=== PATIENT | female | born 1955 | race Hispanic/Latino ===

== ENCOUNTER 2020-10-03 11:19 | Emergency (ER) | payer MEDICARE, MEDICAID, SELFPAY ==
[2020-10-03] VITALS (16 sets, daily range): BP systolic 125–185; BP diastolic 59–84; PULSE 51–86; RESP 12–24; TEMP 37.4; O2SAT 96–99; BMI 26.4
--- NOTE | 2020-10-03 12:19 | ED.GIBLEED ---
HPI - GI Bleed General Chief complaint: GI Bleed Stated complaint: stomach pain since Saturday,bleeding stool Time Seen by Provider: 10/03/20 12:18 Source: patient, family ([id number]) and safety instruction police officer Mode of arrival: Ambulatory Limitations: language barrier (primarily brazilian speaking) History of Present Illness HPI Narrative: This is a 65-year-old female who comes to the emergency department with complaint of abdominal pain and cramping that started Saturday evening and has continued today. She noted a black and bloody stools over the last 12 hours with increasing amount today. Patient has not had fevers, no chills. No cold cough or congestion. No chest pain or shortness of breath she describes the pain is starting her left side and radiating over to her right with time it is now generalized across the abdomen. It has been constant nothing seems to improve or worsen her symptoms. She describes it as a 5/10. She did have a meal of fish on Saturday afternoon/evening, she states 1 other individual had this food and did not have any symptoms. She has not had any nausea or vomiting. She denies any flank or back pain. She had diarrhea like stools that are a little bit more firm in consistency last night. No frequency, dysuria urgency or other urinary symptoms she does not take any blood thinners. She does take medication for hypertension, asthma, she does take Tylenol and Aleve intermittently but does not take take this daily. 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 She has a history of hysterectomy and also had nephrectomy secondary to cancer. No tobacco, alcohol or illicit. She is accompanied by her [id number] who is the main safety instruction police officer. Related Data Home Medications Medication Instructions Recorded Confirmed acyclovir [Zovirax] 400 mg PO BID #0 02/03/12 albuterol sulfate [Proventil HFA] 2 puff INH #8.5 gm 02/03/12 beclomethasone dipropionate [Qvar] 1 puff INH BID #1 inh 02/03/12 hydrochlorothiazide 25 mg PO QDAY #0 02/03/12 ipratropium bromide [Atrovent HFA] 2 puff INH QIDWART #0 02/03/12 metoprolol succinate 100 mg PO BID #0 02/03/12 Previous Rx's Medication Instructions Recorded tramadol [Ultram] 50 mg PO Q6H PRN #14 tab 10/03/20 Allergies Allergy/AdvReac Type Severity Reaction Status Date / Time aspirin Allergy Unknown triggers Verified 10/03/20 14:10 asthma attack Review of Systems Review of Systems ROS Unobtainable: All systems reviewed & are unremarkable except as noted in HPI and below Patient History Medical History (Updated 10/03/20 @ 15:49 by Adriana Lagunas DO) Hypertension Surgical History (Updated 10/03/20 @ 12:46 by Adriana Lagunas DO) H/O: hysterectomy History of nephrectomy Social History Smoking Status: Never smoker Smoking Status: Never smoker alcohol intake frequency: a few times a month Substance Use Type: does not use Exam Narrative Exam Narrative: GENERAL: Alert and oriented x three, well-nourished, well-appearing female in mild distress. HEENT: Head normocephalic, atraumatic, EOMI, pupils reactive, face symmetric, moist mucous membranes NECK: Supple, full range of motion CARDIOVASCULAR: Regular rate and rhythm without murmurs, rubs or gallops. RESPIRATORY: Breath sounds equal bilaterally, no wheezes rales or rhonchi. ABDOMEN: Soft, nontender to palpation. Normoactive bowel sounds all 4 quadrants. No guarding or rebound, rigidity, no mass. Stool occult is negative, no mass noted. Patient does have some small hemorrhoids, no bright red blood or melena noted on exam. : No CVA tenderness EXTREMITIES: Normal range of motion, no clubbing or edema. Neurovascularly intact NEUROLOGICAL: Cranial nerves II through XII grossly intact. Moving all extremities SKIN: Warm, dry, no petechiae, no rashes or lesions. Initial Vital Signs Initial Vital Signs: Vital Signs Temperature 99.3 F 10/03/20 11:34 Pulse Rate 85 10/03/20 11:34 Respiratory Rate 18 10/03/20 11:34 Blood Pressure 164/76 H 10/03/20 11:34 Pulse Oximetry 97 10/03/20 11:34 Course Orders Ordered: ED Orders 10/03/20 12:38 Complete Blood Count AUTO DIFF Stat Comprehensive Metabolic Panel Stat Lipase Stat Partial Thromboplastin Time Stat Prothrombin Time INR Stat Type and Screen Stat 10/03/20 14:15 CT abdomen pelvis w con Stat Discontinued Medications Ketorolac Tromethamine (Ketorolac 60 Mg/2 Ml Vial) 15 mg IV NOW ONE Stop: 10/03/20 14:05 Last Admin: 10/03/20 14:14 Dose: 15 mg Documented by: BLACK Ondansetron HCl (Ondansetron 4 Mg/2 Ml Inj) 4 mg IV NOW ONE Stop: 10/03/20 12:19 Last Admin: 10/03/20 12:58 Dose: 4 mg Documented by: DANITZA Vital Signs Vital signs: Vital Signs - 8 hr 10/03/20 12:30 10/03/20 12:38 10/03/20 13:01 Pulse Rate 68 69 Respiratory Rate Blood Pressure 149/77 H 131/73 Pulse Oximetry 97 97 10/03/20 13:21 10/03/20 13:30 10/03/20 14:00 Pulse Rate 60 56 L Respiratory Rate 21 17 21 Blood Pressure 130/66 Pulse Oximetry 10/03/20 14:01 10/03/20 14:28 10/03/20 14:30 Pulse Rate 58 L 57 L 56 L Respiratory Rate 24 17 12 Blood Pressure 126/67 131/62 Pulse Oximetry 97 99 10/03/20 14:31 10/03/20 15:00 10/03/20 15:30 Pulse Rate 53 L 58 L 51 L Respiratory Rate 14 20 17 Blood Pressure 127/59 L 132/65 130/67 Pulse Oximetry 98 97 96 10/03/20 16:00 10/03/20 16:30 Pulse Rate 51 L 86 Respiratory Rate 22 17 Blood Pressure 125/63 185/84 H Pulse Oximetry 97 97 MDM - GI Bleed Lab Data Attestation: I reviewed the patient's lab results. Result diagrams: 10/03/20 12:38 10/03/20 12:38 Labs: Lab Results 10/03/20 10/03/20 10/03/20 Range/Units 12:38 12:38 12:38 WBC 9.3 (4.5-11.0) X10^3/uL RBC 4.73 (4.0-5.2) X10^6/uL Hgb 13.7 (12.0-16.0) g/dL Hct 40.6 (36-46) % MCV 85.9 (80-100) fL MCH 29.1 (26-34) PG MCHC 33.8 (30-36) % RDW 13.6 (11.6-14.8) % Plt Count 260 (150-400) X10^3/uL Neut % (Auto) 68.8 (50-75) % Lymph % (Auto) 22.6 L (25-40) % Coffey % (Auto) 5.4 (3-14) % Eos % (Auto) 2.5 (2-4) % Baso % (Auto) 0.7 (0-2) % Neut # (Auto) 6400 (8771-3285) /uL Lymph # (Auto) 2100 (7537-1914) /uL [place]offey # (Auto) 500 (0-900) /uL Eos # (Auto) 200 (0-450) /uL Baso # (Auto) 100 (0-100) /uL PT 11.1 (10.1-12.7) SECONDS INR 1.0 (0.9-1.3) APTT 36 (26.4-36.2) SECONDS Sodium 137 (137-145) mmol/L Potassium 3.7 (3.4-5.1) mmol/L Chloride 102 (98-107) mmol/L Carbon Dioxide 27 (22-32) mmol/L BUN 12 (7-17) mg/dL Creatinine 0.67 (0.52-1.04) mg/dL Estimated GFR > 60.0 (>60) mL/min BUN/Creatinine Ratio 17.9 (6-22) Glucose 162 H (80-110) mg/dL Calcium 9.2 (8.4-10.2) mg/dL Total Bilirubin 0.4 (0.2-1.3) mg/dL AST 26 (14-36) IU/L ALT 21 (<35) IU/L Alkaline Phosphatase 98 (38-126) U/L Total Protein 7.4 (6.3-8.2) g/dL Albumin 4.4 (3.5-5.0) g/dL Globulin 3.0 (1.7-4.1) g/dL Albumin/Globulin Ratio 1.5 (1.0-2.8) Lipase 66 (23-300) U/L Blood Type Antibody Screen 10/03/20 Range/Units 12:38 WBC (4.5-11.0) X10^3/uL RBC (4.0-5.2) X10^6/uL Hgb (12.0-16.0) g/dL Hct (36-46) % MCV (80-100) fL MCH (26-34) PG MCHC (30-36) % RDW (11.6-14.8) % Plt Count (150-400) X10^3/uL Neut % (Auto) (50-75) % Lymph % (Auto) (25-40) % [place]offey % (Auto) (3-14) % Eos % (Auto) (2-4) % Baso % (Auto) (0-2) % Neut # (Auto) (2129-3751) /uL Lymph # (Auto) (9873-6336) /uL [place]offey # (Auto) (0-900) /uL Eos # (Auto) (0-450) /uL Baso # (Auto) (0-100) /uL PT (10.1-12.7) SECONDS INR (0.9-1.3) APTT (26.4-36.2) SECONDS Sodium (137-145) mmol/L Potassium (3.4-5.1) mmol/L Chloride (98-107) mmol/L Carbon Dioxide (22-32) mmol/L BUN (7-17) mg/dL Creatinine (0.52-1.04) mg/dL Estimated GFR (>60) mL/min BUN/Creatinine Ratio (6-22) Glucose (80-110) mg/dL Calcium (8.4-10.2) mg/dL Total Bilirubin (0.2-1.3) mg/dL AST (14-36) IU/L ALT (<35) IU/L Alkaline Phosphatase (38-126) U/L Total Protein (6.3-8.2) g/dL Albumin (3.5-5.0) g/dL Globulin (1.7-4.1) g/dL Albumin/Globulin Ratio (1.0-2.8) Lipase (23-300) U/L Blood Type O Positive Antibody Screen Negative Urine Dip Bedside Urine Glucose Negative Bedside Urine Bilirubin - Negative Bedside Urine Ketone - Negative Urine Specific [place] 1.010 Bedside Urine Occult Blood - Negative Bedside Urine pH 6.5 Bedside Urine Protein - Negative Bedside Urine Urobilinogen - Negative Bedside Urine Nitrite - Negative Bedside Urine Leukocytes - Negative Esterase Imaging Data CT scan - abdomen/pelvis: Radiologist's Impression: [address] [id number] Scan ReportSigned Patient: Lubna Mayen#: [id number]: 4Acct:[id number]/Sex: 65 / FDate of Service: 10/03/20Loc: EDAccession Number: [id number] Procedure: CT abdomen pelvis w con Ordering Provider: Adriana Lagunas D.O. PROCEDURE: CT ABDOMEN PELVIS W CON INDICATIONS: abdominal pain, rectal bleeding TECHNIQUE: After the administration of intravenous contrast, 5 mm thick sections acquired from the diaphragm to the symphysis. 5 mm coronal and sagittal reformats were acquired. For radiation dose reduction, the following was used: automated exposure control, adjustment of mA and/or kV according to patient size. COMPARISON: None. FINDINGS: Image quality: Excellent. ABDOMEN: Lung bases: 4 millimeters subpleural nodule is seen in lateral aspect of right middle lobe anterior to major fissure. Faint 1-2 millimeter nodule is also seen in more anterior aspect of right middle lobe at this level series 3, image 13. No pleural effusion or pneumothorax. Heart size is normal. Solid organs: Liver is normal in size . Mild hepatic steatosis is seen. 2.8 x 2.8 centimeter hypodense area involving inferior right hepatic lobe is seen measures 2 Hounsfield unit in density likely represent hepatic cyst. Gallbladder is within normal limits. Biliary system is non dilated. Pancreas enhances normally. Spleen is normal in size and enhancement. Diffuse thickening of left adrenal gland is seen without discrete left adrenal nodule. Right adrenal gland is not definitively seen. Patient is status post right nephrectomy. There is a solid and heterogeneously enhancing mass involving right renal fossa measures 5.8 x 6.4 x 8.1 cm in size with mild mass effect on the adjacent right hepatic lobe and ascending colon loop. Left kidney show no hydronephrosis or nephrolithiasis. Peritoneum and bowel: Bowel loops demonstrate normal wall thickness and caliber. No free fluid or air. Appendix is visualized and is within normal limits. Nodes and vessels: No retroperitoneal or mesenteric adenopathy by size criteria. Aorta and inferior vena cava are normal in size. Miscellaneous: No ventral hernias. PELVIS: Genitourinary: Bladder wall thickness is normal. Miscellaneous: No inguinal hernias or adenopathy. Bones: No suspicious bony lesions. No vertebral body compression fractures. Degenerative disc disease throughout lower thoracic and lumbar spine is seen. IMPRESSION: 1. Prior right nephrectomy. 5.8 x 6.4 x 8.1 centimeter heterogeneously enhancing and solid lesion involving right renal fossa and is in close proximity to posterior aspect of inferior right hepatic lobe. Given patient's history of right renal cancer, tumor recurrence is suspected. No gross abnormality is seen in left kidney. No hydronephrosis. 2. 2.8 centimeter hypodense area with well-circumscribed margins seen in inferior right hepatic lobe likely represent hepatic cyst. 3. No bowel obstruction. No free fluid or free air. No gross abnormal bowel wall thickening. Normal appendix. Dictated by: Zheng Charles M.D. on 10/03/2020 at 14:43 Approved by: Zheng Charles M.D. on 10/03/2020 at 14:55 MDM Narrative Medical decision making narrative: 65-year-old female with abdominal pain since Saturday and complaint of rectal bleeding. Hemoccult was negative. Labs show no major abnormalities. CT abdomen pelvis was obtained, patient has a prior right nephrectomy approximately 16 years ago for renal cancer. She has a mass that is present that she was unaware of. Unclear if this is an incidental finding or the cause of her abdominal but follow-up was set up with Dr. Kebede through Oncology patient's family is to contact to set up exact appointment time but plan to be seen later this week or early next week. Patient and her daughter in-law and I discussed her findings today with the use of a telegraph dispatcher. She continues to have some pain so was given a prescription for Ultram as well as encouraged to use Colace or a stool softener regularly. They were also encouraged recontact us or return to the ER if they have difficulty setting up follow-up secondary to language issues or other reasons. Discharge Plan Departure Patient Disposition: Home Clinical Impression: Abdominal pain, Abdominal mass Activity Restrictions/Additional Instructions: Follow up with oncology, call the number below to set up follow-up appointment. I spoke with Dr. Kebede he will follow up with at the end of the week or early next week. If you have problems setting up follow up to call the emergency department. Your imaging today shows a lesion on the right side close to where your kidney was before. This is concerning for recurrence of your prior cancer. You may take up to a 1000 mg every 8 hours as needed for pain. Prescriptions: New tramadol [Ultram] 50 mg tablet 50 mg PO Q6H PRN (Reason: pain) Qty: 14 RF: 0 No Action acyclovir [Zovirax] 400 MG tablet 400 mg PO BID Qty: 0 RF: 0 metoprolol succinate 100 MG tablet extended release 24 hr 100 mg PO BID Qty: 0 RF: 0 hydrochlorothiazide 25 MG tablet 25 mg PO QDAY Qty: 0 RF: 0 beclomethasone dipropionate [Qvar] 80 MCG/PUFF aerosol 1 puff INH BID Qty: 1 RF: 0 albuterol sulfate [Proventil HFA] 90 MCG/PUFF HFA aerosol inhaler 2 puff INH Qty: 8.5 RF: 0 ipratropium bromide [Atrovent HFA] 12.9 GM HFA aerosol inhaler 2 puff INH QIDWART Qty: 0 RF: 0 Referrals: Tiara Styles MD [Primary Care Provider] - Rios Kebede MD [Physician] -
[2020-10-03 12:53] LABS: Add Manual Diff / Slide Review NO; Basophils Absolute Auto 100 /uL (0-100); Basophils Percent Auto 0.7 % (0-2); Eosinophils Absolute Auto 200 /uL (0-450); Eosinophils Percent Auto 2.5 % (2-4); Hematocrit 40.6 % (36-46); Hemoglobin 13.7 g/dL (12.0-16.0); Lymphocytes Absolute Auto 2100 /uL (1100-4500); Lymphocytes Percent Auto 22.6 % (25-40); Mean Corpuscular HGB Conc 33.8 % (30-36); Mean Corpuscular Hemoglobin 29.1 PG (26-34); Mean Corpuscular Volume 85.9 fL (80-100); Monocytes Absolute Auto 500 /uL (0-900); Monocytes Percent Auto 5.4 % (3-14); Neutrophils Absolute Auto 6400 /uL (1500-7000); Neutrophils Percent Auto 68.8 % (50-75); Platelet Count 260 X10^3/uL (150-400); Red Blood Cell Count 4.73 X10^6/uL (4.0-5.2); Red Cell Distribution Width 13.6 % (11.6-14.8); White Blood Cell Count 9.3 X10^3/uL (4.5-11.0)
[2020-10-03] MEDS: ONDANSETRON 4 MG/2 ML INJ IV (12:58)
[2020-10-03 12:59] LABS: Prothrombin Time 11.1 SECONDS (10.1-12.7)
[2020-10-03 13:02] LABS: PTT Partial Thromboplastin Tim 36 SECONDS (26.4-36.2)
[2020-10-03 13:04] LABS: Alanine Aminotransferase 21 IU/L (<35); Albumin 4.4 g/dL (3.5-5.0); Albumin Globulin Ratio 1.5 (1.0-2.8); Alkaline Phosphatase 98 U/L (38-126); Aspartate Aminotransferase 26 IU/L (14-36); BUN Creatinine Ratio 17.9 (6-22); Bilirubin Total 0.4 mg/dL (0.2-1.3); Blood Urea Nitrogen 12 mg/dL (7-17); Calcium 9.2 mg/dL (8.4-10.2); Carbon Dioxide 27 mmol/L (22-32); Chloride 102 mmol/L (98-107); Estimated Glomerular Filt Rate > 60.0 mL/min (>60); Glucose 162 mg/dL (80-110); HEMOLYSIS < 15 (0-50); Lipase 66 U/L (23-300); Potassium 3.7 mmol/L (3.4-5.1); Sodium 137 mmol/L (137-145); Total Protein 7.4 g/dL (6.3-8.2)
[2020-10-03] MEDS: KETOROLAC 60 MG/2 ML VIAL 15 MG IV (14:14)
--- NOTE | 2020-10-03 14:15 | DI.CT.S_ITS ---
PROCEDURE: CT ABDOMEN PELVIS W CON INDICATIONS: abdominal pain, rectal bleeding TECHNIQUE: After the administration of intravenous contrast, 5 mm thick sections acquired from the diaphragm to the symphysis. 5 mm coronal and sagittal reformats were acquired. For radiation dose reduction, the following was used: automated exposure control, adjustment of mA and/or kV according to patient size. COMPARISON: None. FINDINGS: Image quality: Excellent. ABDOMEN: Lung bases: 4 millimeters subpleural nodule is seen in lateral aspect of right middle lobe anterior to major fissure. Faint 1-2 millimeter nodule is also seen in more anterior aspect of right middle lobe at this level series 3, image 13. No pleural effusion or pneumothorax. Heart size is normal. Solid organs: Liver is normal in size . Mild hepatic steatosis is seen. 2.8 x 2.8 centimeter hypodense area involving inferior right hepatic lobe is seen measures 2 Hounsfield unit in density likely represent hepatic cyst. Gallbladder is within normal limits. Biliary system is non dilated. Pancreas enhances normally. Spleen is normal in size and enhancement. Diffuse thickening of left adrenal gland is seen without discrete left adrenal nodule. Right adrenal gland is not definitively seen. Patient is status post right nephrectomy. There is a solid and heterogeneously enhancing mass involving right renal fossa measures 5.8 x 6.4 x 8.1 cm in size with mild mass effect on the adjacent right hepatic lobe and ascending colon loop. Left kidney show no hydronephrosis or nephrolithiasis. Peritoneum and bowel: Bowel loops demonstrate normal wall thickness and caliber. No free fluid or air. Appendix is visualized and is within normal limits. Nodes and vessels: No retroperitoneal or mesenteric adenopathy by size criteria. Aorta and inferior vena cava are normal in size. Miscellaneous: No ventral hernias. PELVIS: Genitourinary: Bladder wall thickness is normal. Miscellaneous: No inguinal hernias or adenopathy. Bones: No suspicious bony lesions. No vertebral body compression fractures. Degenerative disc disease throughout lower thoracic and lumbar spine is seen. IMPRESSION: 1. Prior right nephrectomy. 5.8 x 6.4 x 8.1 centimeter heterogeneously enhancing and solid lesion involving right renal fossa and is in close proximity to posterior aspect of inferior right hepatic lobe. Given patient's history of right renal cancer, tumor recurrence is suspected. No gross abnormality is seen in left kidney. No hydronephrosis. 2. 2.8 centimeter hypodense area with well-circumscribed margins seen in inferior right hepatic lobe likely represent hepatic cyst. 3. No bowel obstruction. No free fluid or free air. No gross abnormal bowel wall thickening. Normal appendix. Dictated by: Zheng Charles M.D. on 10/03/2020 at 14:43 Approved by: Zheng Charles M.D. on 10/03/2020 at 14:55
== END 2020-10-03 17:12 | disposition home or self-care (01) ==
PROVIDERS: Emergency Provider Emergency Medicine; PCP Family Medicine
DX: R19.09 Other intra-abdominal and pelvic swelling, mass and lump (principal); R10.9 Unspecified abdominal pain; K92.1 Melena; Z85.528 Personal history of other malignant neoplasm of kidney; Z90.5 Acquired absence of kidney
CPT/HCPCS: 36415; 74177; 80053; 81003; 83690; 85025; 85610; 85730; 86850; 86900; 86901; 96374; 96375; 99281; 99284; J1885; J2405; Q9967

== ENCOUNTER → 2020-10-20 11:51 | Outpatient (CLI) | payer MEDICARE, MEDICAID, SELFPAY ==
--- NOTE | 2020-10-20 11:52 | DI.CT.S_ITS ---
PROCEDURE: CT CHEST WO CON INDICATIONS: right retroperitonal mass, kidney cancer TECHNIQUE: Noncontrast 5 mm thick sections acquired from the pulmonary apices to the posterior costophrenic angles. 1 mm lung window, 5 mm thick coronal and sagittal and 7 mm axial MIP reformats were then acquired. For radiation dose reduction, the following was used: automated exposure control, adjustment of mA and/or kV according to patient size. COMPARISON: [facility], ID, ID PET CT FUSION SKULL 2 THIGH, 10/19/2020, 10:39. [facility], CT, CT ABDOMEN PELVIS W CON, 10/03/2020, 14:17. FINDINGS: Image quality: Excellent. Right middle lobe 2 mm pulmonary nodule seen on image 181/3 is indeterminate. Pleural-based 2-3 mm nodule also seen in the right middle lobe on image 178/3. No pleural effusions or pneumothorax. Central and peripheral airways are patent and normal in caliber. Mediastinum: Heart size is normal. No pericardial effusion. No mediastinal adenopathy by size criteria. Thoracic aorta and central pulmonary arteries are normal in size. Esophagus is normal in caliber. No hiatal hernia. Bones and chest wall: No suspicious bony lesions. No vertebral body compression fractures. No axillary or supraclavicular adenopathy by size criteria. Thyroid gland heterogeneous, with possible low-attenuation nodule in the right lobe although this could be confirmed and further assessed with dedicated thyroid ultrasound as necessary. . Abdomen: Partially visualized redemonstrated round mass within the right retroperitoneum as before. IMPRESSION: Indeterminate sub 5 mm pulmonary nodules in the right middle lobe as above. Recommend continued surveillance with CT to document stability and exclude early metastatic/malignant disease. Partially visualized right retroperitoneal mass, as previously described. Dictated by: Julio Alcaraz M.D. on 10/20/2020 at 12:58 Approved by: Julio Alcaraz M.D. on 10/20/2020 at 13:06
== END ==
PROVIDERS: PCP Family Medicine; Referring Provider Internal Medicine Hematology & Oncology; Visit Provider Internal Medicine Hematology & Oncology
DX: R19.09 Other intra-abdominal and pelvic swelling, mass and lump (principal); R92.8 Other abnormal and inconclusive findings on diagnostic imaging of breast; Z85.528 Personal history of other malignant neoplasm of kidney
CPT/HCPCS: 71250

== ENCOUNTER → 2020-10-24 16:20 | Oncology outpatient (ONC) | payer MEDICARE, MEDICAID, SELFPAY ==
--- NOTE | 2020-10-06 12:48 | ONC.CONS ---
History of Present Illness - Data of Consult Patient: new to practice Consult date: 10/06/20 Requesting Physician: Tiara Styles MD Primary Care Provider: Tiara Styles MD - Consult Narrative Reason for consult: Right abdominal mass Narrative: Lubna Mays is a 65 year old female. She is Gabonese speaking only. Her grandson was with her and interpreted during the encounter. She has a remote history of right kidney cancer diagnosed in 2001 or 2002 at [facility]. The patient underwent right nephrectomy. The patient said it was a kidney cancer. However no actual pathological report was available to review during the encounter. After the surgery the patient has been on active surveillance and imaging studies until 2004 when she moved to the [facility]. According to her, she has been back multiple times to [place] for follow-up visit. She said the most recent study at [place] was in 2019 with abdominal ultrasound which was ?normal.? The patient developed abdominal pain and cramping that started on 09/30/2020. Patient also noted a black and bloody stools for the next one day. She said that the pain was located around the lower abdomen. It was constant and nothing seemed to improve or worsen the symptoms. The pain was 5/10 in severity. Patient was evaluated at the [facility] Emergency Room on 10/03/2020. CT abdomen and pelvis with contrast showed evidence of prior nephrectomy. It also showed a 5.8 x 6.4 x 8.1 cm heterogeneously enhancing and solid lesion involving right renal fossa and was in close proximity to posterior aspect of inferior right hepatic lobe. It also showed a 2.8 cm hypodense area with well circumscribed margins in inferior right hepatic lobe likely representing a hepatic cyst. Patient said that the abdominal pain resolved later, but she began to feel discomfort at the right flank area. She reports that her energy level is fine but feels nervous and worried. Her appetite also has decreased. She denies any shortness of breath or chest pain. She denies cough. She denies any headache double vision or blurred vision. She denies any nausea or vomiting. She denies any musculoskeletal pain. CC: Rios Kebede MD Patient reports pain?: No Home Medications and Allergies Home Medications Medication Instructions Recorded Confirmed Type Atrovent HFA 2 puff INH QIDWART #0 02/03/12 10/06/20 History Qvar 1 puff INH PRN PRN #1 inh 02/03/12 10/06/20 History acyclovir [Zovirax] 400 mg PO DAILY #0 02/03/12 10/06/20 History albuterol sulfate [Proventil HFA] 2 puff INH PRN PRN #8.5 gm 02/03/12 10/06/20 History hydrochlorothiazide 25 mg PO QDAY #0 02/03/12 10/06/20 History tramadol [Ultram] 50 mg PO Q6H PRN #14 tab 10/03/20 10/06/20 Rx amlodipine [Norvasc] 10 mg PO DAILY 10/06/20 10/06/20 History cetirizine [Zyrtec] 10 mg PRN PRN 10/06/20 10/06/20 History naproxen sodium [Aleve] 220 mg PO BID PRN 10/06/20 10/06/20 History omeprazole 20 mg PRN PRN 10/06/20 10/06/20 History Allergies Allergy/AdvReac Type Severity Reaction Status Date / Time aspirin Allergy Unknown triggers Verified 10/03/20 14:10 asthma attack Medical History - Medical, Surgical, Family History Medical History: Medical History (Last Updated 10/03/20 @ 12:46 by Adriana Lagunas DO) Hypertension Surgical History: Surgical History (Last Updated 10/03/20 @ 12:46 by Adriana Lagunas DO) H/O: hysterectomy History of nephrectomy Family History: Family History (Last Updated 10/06/20 @ 13:38 by Rios Kebede MD) Brother Lung cancer - Social History Smoking Status: Never smoker Substance Use Type: does not use Alcohol Intake: current (wine occasionally) Results - Imaging Additional studies: Procedures Other nonoperative respiratory measurements (04/05/13) Assessment and Plan (1) Abdominal mass, right upper quadrant The patient is a 65-year-old Gabonese-speaking woman with remote history of right kidney cancer status post radical nephrectomy in . Now she presented with bright red blood per rectum, abdominal pain, and CT evidence of right sided mass in the renal fossa in 09/2020. I talked with the patient that at this point, we do not know exactly what is the diagnosis of the mass in the right renal fossa. It could be benign or it could be local recurrence of the previous renal cell carcinoma. The previous diagnosis is also important. I will have the patient to call her previous surgeon at [place] and fax us the previous medical records. Patient and patient's grandson both voiced understanding. I explained to the patient that if it is recurrence, usually it will also show up in other organ systems. To complete the staging, I will obtain a CT of the chest without contrast. In addition, I will obtain a PET scan to to better evaluate. I discussed this case with Dr. Benitez today. We reviewed the CT of the abdomen and pelvis. Dr. Benitez noted that the mass in the right renal fossa seems to be either invading or connected with the small bowel. The mass also has close relationship with the liver without plane between the mass and the liver. There seems to be an artery coming from the left kidney to the mass. Dr. Benitez recommended that we get an evaluation from general surgery. We also agreed that a CT-guided biopsy is necessary. Plan: Medical records from [place] CT chest wo contrast PET CT CT guided biopsy of the mass Referral to general surgery for evaluation RTC after scan
[2020-10-06 12:53] VITALS: BP 132/88; PULSE 93; RESP 18; TEMP 36.4; O2SAT 96
--- NOTE | 2020-10-11 11:41 | ONC.SCHED ---
PET scan scheduled for 10/19/20 check in time of 10:10 AM. Patient will be needing to bring her grandson for interpretation. I gave apt. day/time to grandson.
--- NOTE | 2020-10-13 09:12 | ONC.SCHED ---
Still waiting for approval from radiologist for the CT biopsy of the abdomen to be done at the same time as the CT chest wo contrast. I gave this to Louise in DI a couple of days ago and checked on the status today; nothing has been returned to her/approved yet.
--- NOTE | 2020-10-17 13:40 | ONC.SCHED ---
Patient is scheduled for CT chest wo 10/20/20 and will have her grandson, Lopez bring her to the apt. for interpretation. I will send out the email.
--- NOTE | 2020-10-17 13:41 | ONC.SCHED ---
Patient is scheduled with Dr. Carrillo 10/21/20 for a consult per referral @ 1:15PM check in time. I'm waiting to hear back from her grandson to see who will be coming for interpretation as patient will need it.
--- NOTE | 2020-10-24 16:34 | P.PNONC_ITS ---
PN -Subjective Interval history: Lubna Mays is a 65 year old female. She is Polish speaking only. Her grandson was with her and interpreted during the encounter. She has a remote history of right kidney cancer diagnosed in 2001 or 2002 at [facility]. The patient underwent right nephrectomy. The patient said it was a kid ruby cancer. However no actual pathological report was available to review during the encounter. After the surgery the patient has been on active surveillance and imaging studies until 2004 when she moved to the [facility]. According to her, she has been back multiple times to [place] for follow-up visit. She said the most recent study at [place] was in 2019 with abdominal ultrasound which was ?normal.? The patient developed abdominal pain and cramping that started on 09/30/2020. Patient also noted a black and bloody stools for the next one day. She said that the pain was located around the lower abdomen. It was constant and nothing seemed to improve or worsen the symptoms. The pain was 5/10 in severity. Patient was evaluated at the [facility] Emergency Room on 10/03/2020. CT a bdomen and pelvis with contrast showed evidence of prior nephrectomy. It also showed a 5.8 x 6.4 x 8.1 cm heterogeneously enhancing and solid lesion involving right renal fossa and was in close proximity to posterior aspect of inferior right hepatic lobe. It also showed a 2.8 cm hypodense area with well circumscribed margins in inferior right hepatic lobe likely representing a hepatic cyst. Patient said that the abdominal pain resolved later, but she began to feel discomfort at the right flank area. She reports that her energy level is fine but feels nervous and worried. Her appetite also has decreased. She denies any shortness of breath or chest pain. She denies cough. She denies any headache double vision or blurred vision. She denies any nausea or vomiting. She denies any musculoskeletal pain. Interim Events: No medical records can be obtained because they have destroyed the records after 5 years. On 10/19/2020, patient underwent PET scan. It showed a 6 cm mass in the right adrenal/renal fossa with increased FDG uptake, mildly hypermetabolic lymph nodes in the mediastinum and carmine bilaterally, and a hypermetabolic soft tissue nodule projecting to the posterior aspect of the right thyroid lobe. On 10/20/2020, patient underwent CT chest without contrast. It showed indeterminate sub 5 mm pulmonary nodules in the right middle lobe On 10/21/2020, patient was evaluated by Dr. Carrillo. misha, general surgeon at [facility]. Dr. alfonso khan thought the patient is most appropriately treated at a tertiary center given the proximity the mass to her liver, vena cava, duo denum, pancreas, and small bowel. Home Medications and Allergies Home Medications Medication Instructions Recorded Confirmed Type Atrovent HFA 2 puff INH QIDWART #0 02/03/12 10/24/20 History Qvar 1 puff INH PRN PRN #1 inh 02/03/12 10/24/20 History acyclovir [Zovirax] 400 mg PO DAILY #0 02/03/12 10/24/20 History albuterol sulfate [Proventil HFA] 2 puff INH PRN PRN #8.5 gm 02/03/12 10/24/20 History hydrochlorothiazide 25 mg PO QDAY #0 02/03/12 10/24/20 History tramadol [Ultram] 50 mg PO Q6H PRN #14 tab 10/03/20 10/24/20 Rx amlodipine [Norvasc] 10 mg PO DAILY 10/06/20 10/24/20 History cetirizine [Zyrtec] 10 mg PRN PRN 10/06/20 10/24/20 History naproxen sodium [Aleve] 220 mg PO BID PRN 10/06/20 10/24/20 History omeprazole 20 mg PRN PRN 10/06/20 10/24/20 History lorazepam 0.5 mg PO TID PRN #30 tab 10/24/20 Rx Allergies Allergy/AdvReac Type Severity Reaction Status Date / Time aspirin Allergy Unknown triggers Verified 10/21/20 14:02 asthma attack Exam Vital signs: 10/25/20 00:31 Last Vital Signs Temp 97.6 F 10/06/20 12:53 Pulse 93 H 10/24/20 16:58 Resp 16 10/24/20 16:58 BP 146/84 H 10/24/20 16:58 Pulse Ox 95 10/24/20 16:58 - Constitutional positive no acute distress, positive obese, positive chronically ill appearing, positive cooperative - Routine HEENT Exam Head: Present: normocephalic, atraumatic Eye: Present: EOMI, PERRL, normal accommodation. Absent: conjunctival icterus ENT: Present: mucous membranes moist - Routine Neck Exam Present: supple, swelling. Absent: lymphadenopathy, thyromegaly - Routine Chest/Breast/Axilla Exam Chest wall exam standard: Absent: mass Axillae: Absent: lymphadenopathy, tenderness - Routine Respiratory Exam Present: Clear to auscultation bilaterally. Absent: wheezes - Routine Cardiovascular Exam Present: RRR, S1, S2. Absent: murmur, gallop, rubs - Routine Abdominal Exam Present: soft. Absent: tenderness, distended, organomegaly - Routine Extremities Exam Absent: edema - Routine Neurological Exam Present: alert, oriented X3, CN II-XII intact. Absent: sensory deficit, motor deficit - Routine Psychiatric Exam Present: cooperative, anxious Results - Imaging Additional studies: Procedures Other nonoperative respiratory measurements (04/05/13) Assessment and Plan (1) Abdominal mass, right upper quadrant The patient is a 65-year-old Polish-speaking woman with remote history of right kidney cancer status post radical nephrectomy in . Now she presented with bright red blood per rectum, abdominal pain, and CT evidence of right sided mass in the renal fossa in 09/2020. Today I showed the patient and her grandson the CT of the chest as well as PET scan with the patient. I pointed out to them that it is suspicious for recurrent kidney cancer but other possibilities cannot be completely excluded. On the PET scan, there are hypermetabolic mediastinum and hilar lymph as well as thyroid hypermetabolic lesion. The significance of these findings are difficult to reconcile with the right upper abdomen mass. I talked with the patient and her grandson that I agree with Dr. Carrillo and Dr. Vidal that the patient needs to be transferred to high volume tertiary center for evaluation and treatment. Plan: Referral to Urology at /[facility] for evaluation. RTC in 2 months
[2020-10-24 16:58] VITALS: BP 146/84; PULSE 93; RESP 16; O2SAT 95
--- NOTE | 2020-11-07 09:27 | ONC.SCHED ---
Called patient's grandson [employer] to make sure they have heard from [facility]. They have an apt. this with [facility] and are planning on getting patients there. They will call us when they know dates/apt. with them in order to get patient scheduled here.
--- NOTE | 2021-01-25 15:20 | ONC.SCHED ---
Spoke to Bj today to see if Lubna (patient) was ready to make a fup with Dr. Kebede. He is on her auth to discuss. Bj said that patient had biopsy in [place] and is scheduled to have surgery 01/30/21 in [place]. They will call back for scheduling after she's feeling better from surgery.
== END ==
PROVIDERS: PCP Family Medicine; Referring Provider Family Medicine; Visit Provider Internal Medicine Hematology & Oncology
DX: R19.09 Other intra-abdominal and pelvic swelling, mass and lump (principal); E07.9 Disorder of thyroid, unspecified; R91.8 Other nonspecific abnormal finding of lung field; K62.5 Hemorrhage of anus and rectum; Z85.528 Personal history of other malignant neoplasm of kidney; Z90.5 Acquired absence of kidney; Z90.710 Acquired absence of both cervix and uterus
CPT/HCPCS: 99204; 99214; 99215

== ENCOUNTER → 2020-11-29 15:40 | Outpatient (CLI) | payer MEDICARE, MEDICAID, SELFPAY ==
[2020-12-03 12:08] LABS: Metanephrine,Plasma <10.0 pg/mL (0.0-88.0)
== END ==
PROVIDERS: PCP Family Medicine; Referring Provider Internal Medicine Medical Oncology; Visit Provider Internal Medicine Medical Oncology
DX: E27.8 Other specified disorders of adrenal gland (principal)
CPT/HCPCS: 36415; 83835

== ENCOUNTER 2021-03-15 14:53 | Emergency (ER) | payer MEDICARE, MEDICAID, SELFPAY ==
[2021-03-15] VITALS (11 sets, daily range): BP systolic 124–146; BP diastolic 63–76; PULSE 79–92; RESP 20–28; TEMP 36.7; O2SAT 95–98
--- NOTE | 2021-03-15 16:04 | ED.ASTHMA ---
HPI - Asthma General Chief Complaint: Asthma Stated Complaint: asthma attack Time Seen by Provider: 03/15/21 15:58 Source: patient Mode of arrival: Ambulatory Limitations: language barrier History of Present Illness HPI Narrative: Patient is a 66-year-old female who is Faroese-speaking only who is here for evaluation of reported asthma attack. Patient's daughter is with her. Her daughter provided translation services. We did offer the translation line however the patient and the daughter both stated that they were okay with the daughter providing this service. It appears that the patient has had a history of asthma in the past. Does have an albuterol inhaler at home however this does not seem to be helping her symptoms. Patient states that every time this happens she needs steroids and then the symptoms improved. While waiting for a room/evaluation in the emergency department she was given a spacer by the triage nurse and she used her home albuterol inhaler. By the time I evaluated the patient she stated that she was actually feeling better with just this minimal intervention. She denies any chest pain. She was seen by a primary provider several days ago because of a cough and has been on Tessalon Perles since then with only minimal improvement. Related Data Home Medications Medication Instructions Recorded Confirmed Atrovent HFA 2 puff INH QIDWART #0 02/03/12 10/24/20 Qvar 1 puff INH PRN PRN #1 inh 02/03/12 10/24/20 acyclovir [Zovirax] 400 mg PO DAILY #0 02/03/12 10/24/20 albuterol sulfate [Proventil HFA] 2 puff INH PRN PRN #8.5 gm 02/03/12 10/24/20 hydrochlorothiazide 25 mg PO QDAY #0 02/03/12 10/24/20 amlodipine [Norvasc] 10 mg PO DAILY 10/06/20 10/24/20 cetirizine [Zyrtec] 10 mg PRN PRN 10/06/20 10/24/20 naproxen sodium [Aleve] 220 mg PO BID PRN 10/06/20 10/24/20 omeprazole 20 mg PRN PRN 10/06/20 10/24/20 Previous Rx's Medication Instructions Recorded tramadol [Ultram] 50 mg PO Q6H PRN #14 tab 10/03/20 lorazepam 0.5 mg PO TID PRN #30 tab 10/24/20 prednisone 20 mg PO DAILY 2 Days #2 tab 03/15/21 Allergies Allergy/AdvReac Type Severity Reaction Status Date / Time aspirin Allergy Unknown triggers Verified 03/15/21 14:59 asthma attack Review of Systems Constitutional Constitutional: Denies fever(s) Cardiovascular Cardiovascular: Denies chest pain and Reports dyspnea Respiratory Respiratory: Reports cough, Reports dyspnea and Reports wheezing Gastrointestinal Gastrointestinal: Reports system reviewed and no additional complaints, except as documented Integumentary/Breasts Skin/Breast: Denies rash Hematologic/Lymphatic On Anticoagulants: No Allergic/Immunologic Allergic/Immunologic: Reports wheezing Patient History Medical History Asthma History of kidney cancer Hypertension Lymphadenopathy, mediastinal Surgical History H/O: hysterectomy History of nephrectomy Family History Brother Lung cancer Mother Heart disease Social History Smoking Status: Never smoker alcohol intake: current (wine occasionally) substance use type: does not use Smoking Status: Never smoker alcohol intake frequency: holidays/special occasions only Substance Use Type: does not use Exam Initial Vital Signs Initial Vital Signs: Vital Signs Temperature 98.0 F 03/15/21 14:58 Pulse Rate 92 H 03/15/21 14:58 Respiratory Rate 20 03/15/21 14:58 Blood Pressure 137/63 03/15/21 14:58 Pulse Oximetry 98 03/15/21 14:58 Const General: cooperative and comfortable Limitations: mental status not altered [facility] Head: normal to inspection and normocephalic Resp Effort & Inspection: tachypneic Auscultation: wheezes Cardio Rate: regular rate Rhythm: regular rhythm Skin Lesions: no lesions Rashes: no rashes Neuro General: patient alert and patient awake Cognition: normal cognition Speech: speech normal Extrem General: capillary refill normal Psych Appearance: grossly normal and well kempt Course Orders Ordered: Discontinued Medications Albuterol/Ipratropium (Albuterol/Ipratropium 3 Ml Ampul) 3 ml INH NOW ONE Stop: 03/15/21 16:06 Last Admin: 03/15/21 16:10 Dose: 3 ml Documented by: BASIL Albuterol/Ipratropium (Albuterol/Ipratropium 3 Ml Ampul) 3 ml INH NOW ONE Stop: 03/15/21 16:29 Last Admin: 03/15/21 17:23 Dose: 3 ml Documented by: ANDI Prednisone (Prednisone 20 Mg Tablet) 20 mg PO NOW ONE Stop: 03/15/21 16:29 Last Admin: 03/15/21 16:40 Dose: 20 mg Documented by: JUAN Vital Signs Vital signs: Vital Signs - 8 hr 03/15/21 14:58 03/15/21 15:13 03/15/21 15:45 Temperature 98.0 F Pulse Rate 92 H 85 Respiratory Rate 20 Blood Pressure 137/63 Pulse Oximetry 98 98 96 03/15/21 15:46 Temperature Pulse Rate 85 Respiratory Rate Blood Pressure 146/76 H Pulse Oximetry 96 MDM - Asthma MDM Narrative Medical decision making narrative: Patient received steroids and also multiple nebulizer treatments and reported that she was feeling much better. She was still slightly wheezing at the time of discharge but patient states she felt like she could maintain her symptoms with her albuterol and the space that she was given today at home. Will also send her home on a course of steroids. No indication for any antibiotics. Patient was given return precautions and follow-up instructions. She expressed understanding and agreement. Discharge Plan Departure Patient Disposition: Home Clinical Impression: Asthma with acute exacerbation Instructions: DI for Asthma -- Adult Activity Restrictions/Additional Instructions: The next dose of steroids will be tomorrow 03/16/21. There will be another dose on 03/17/21. Continue to use the inhaler as needed. Return to the emergency department for any new or worsening symptoms Prescriptions: New prednisone 20 mg tablet 20 mg PO DAILY 2 Days Qty: 2 RF: 0 No Action acyclovir [Zovirax] 400 MG tablet 400 mg PO DAILY Qty: 0 RF: 0 hydrochlorothiazide 25 MG tablet 25 mg PO QDAY Qty: 0 RF: 0 Qvar 80 MCG/PUFF aerosol 1 puff INH PRN PRN (Reason: Shortness Of Breath) Qty: 1 RF: 0 albuterol sulfate [Proventil HFA] 90 MCG/PUFF HFA aerosol inhaler 2 puff INH PRN PRN (Reason: Shortness Of Breath) Qty: 8.5 RF: 0 Atrovent HFA 12.9 GM HFA aerosol inhaler 2 puff INH QIDWART Qty: 0 RF: 0 amlodipine [Norvasc] 10 mg Tablet 10 mg PO DAILY RF: 0 Zyrtec 10 mg Capsule 10 mg PRN PRN (Reason: Allergy Symptoms) RF: 0 naproxen sodium [Aleve] 220 mg Capsule 220 mg PO BID PRN (Reason: Pain (Scale Score 4-6)) RF: 0 omeprazole 20 mg PRN PRN (Reason: Acid Reflux) RF: 0 lorazepam 0.5 mg Tablet 0.5 mg PO TID PRN (Reason: anxiety, right kidney cancer ) Qty: 30 RF: 0 tramadol [Ultram] 50 mg tablet 50 mg PO Q6H PRN (Reason: pain) Qty: 14 RF: 0 Referrals: Tiara Styles MD [Primary Care Provider] -
[2021-03-15] MEDS: ALBUTEROL/IPRATROPIUM 3 ML AMPUL INH ×2 (16:10→17:23)
--- NOTE | 2021-03-15 16:16 | RT ---
Pt olegario tx well, no distress noted and pt on room aior.
--- NOTE | 2021-03-15 16:17 | RT ---
Pt olegario neb tx well, no distress noted and pt on room air. Peak flow 220/250. Daughter at bedside
[2021-03-15] MEDS: predniSONE 20 MG TABLET PO (16:40)
--- NOTE | 2021-03-15 18:04 | PC.NURSE ---
Pt states she feels much improved after breathing tx
== END 2021-03-15 18:10 | disposition home or self-care (01) ==
PROVIDERS: Emergency Provider Emergency Medicine; PCP Family Medicine
DX: J45.901 Unspecified asthma with (acute) exacerbation (principal); R05 Cough
CPT/HCPCS: 94150; 94640; 99283

== ENCOUNTER 2022-08-01 20:13 | Emergency (ER) | payer MEDICARE, SELFPAY ==
[2022-08-01 20:20] VITALS: BP 143/69; PULSE 90; RESP 20; TEMP 36.9; O2SAT 96; BMI 69.9
--- NOTE | 2022-08-01 22:52 | ED_ITS ---
HPI - Neuro Symptoms/Deficit General Chief Complaint: Neuro Symptoms/Deficit Stated Complaint: whole body feels numb Time Seen by Provider: 08/01/22 22:39 Source: patient Mode of arrival: Ambulatory History of Present Illness HPI Narrative: Patient complains global numbness or tingling from her head down to her feet. No weakness. No slurred speech or facial droop. No palpitations no headache. No altered mental status no vision changes. Patient is status post total thyroidectomy by Dr. Kovacs/Otolaryngology at [facility], last month. End of last month had the 2nd part of her surgery to remove all of her thyroid. About 10 or 12 days later she did have bilateral hand tingling and perioral tingling. She was given calcium supplements for 10 days which symptoms resolved, she had follow-up blood work in [place] showed normal calcium. She does take daily calcium since then. Fast exam is negative. On Anticoagulants: No Related Data Home Medications Medication Instructions Recorded Confirmed acyclovir 400 mg tablet (Zovirax) 400 mg PO DAILY ##0 02/03/12 07/28/22 albuterol sulfate 90 mcg/actuation 2 puff INH PRN PRN Shortness Of 02/03/12 07/28/22 aerosol inhaler (Proventil HFA) Breath ##8.5 beclomethasone dipropionate 80 1 puff INH PRN PRN Shortness Of 02/03/12 07/28/22 mcg/actuation aerosol inhaler Breath #1 inh (Qvar) hydrochlorothiazide 25 mg tablet 25 mg PO QDAY ##0 02/03/12 07/28/22 ipratropium bromide 17 2 puff INH QIDWART ##0 02/03/12 07/28/22 mcg/actuation HFA aerosol inhaler (Atrovent HFA) amlodipine 10 mg tablet (Norvasc) 10 mg PO DAILY 10/06/20 07/28/22 cetirizine 10 mg capsule (Zyrtec) 10 mg PRN PRN Allergy Symptoms 10/06/20 07/28/22 naproxen sodium 220 mg capsule 220 mg PO BID PRN Pain (Scale 10/06/20 07/28/22 (Aleve) Score 4-6) omeprazole 20 mg PRN PRN Acid Reflux 10/06/20 07/28/22 Previous Rx's Medication Instructions Recorded tramadol 50 mg tablet (Ultram) 50 mg PO Q6H PRN pain #14 tabs 10/03/20 lorazepam 0.5 mg tablet 0.5 mg PO TID PRN anxiety, right 10/24/20 kidney cancer #30 tabs prednisone 20 mg tablet 40 mg PO DAILY Asthma exacerbation 07/28/22 5 days #10 tabs Allergies Allergy/AdvReac Type Severity Reaction Status Date / Time aspirin Allergy Unknown triggers Verified 03/15/21 14:59 asthma attack Review of Systems Review of Systems Narrative: GENERAL: Denies chills, fatigue, malaise, fever, sweats. HEENT: Denies sinus pain, ear pain, sore throat RESPIRATORY: Denies dyspnea, cough CARDIOVASCULAR: Denies chest pain, palpitations GASTROINTESTINAL: Denies nausea, vomiting, abdominal pain : Denies dysuria, frequency, hematuria MUSCULOSKELETAL: denies muscle or bony pain SKIN: Denies rash, skin lesions NEUROLOGIC: Denies weakness, positive tingling and numbness ROS Unobtainable: All systems reviewed & are unremarkable except as noted in HPI and below Hematologic/Lymphatic On Anticoagulants: No Patient History Medical History Asthma History of kidney cancer Hypertension Lymphadenopathy, mediastinal Surgical History H/O: hysterectomy History of nephrectomy Family History Brother Lung cancer Mother Heart disease Social History Smoking Status: Never smoker alcohol intake: current (wine occasionally) substance use type: does not use Smoking Status: Never smoker alcohol intake frequency: holidays/special occasions only Substance Use Type: does not use Exam Narrative Exam Narrative: GENERAL: in no distress, not toxic not dyspneic HEAD: Normocephalic. EYES: Pupils equal round No scleral icterus. ENT: Mucous membranes moist. NECK: Trachea midline. Incision clean dry intact at thyroid surgical site. CARDIOVASCULAR: Regular rate and rhythm without murmurs RESPIRATORY: Clear to auscultation. Breath sounds equal bilaterally. No wheezes, rales, or rhonchi. GASTROINTESTINAL: Abdomen soft, non-tender EXTREMITIES: No gross deformities. BACK: No flank tenderness. NEURO: AOx4. Clear speech no facial droop light touch intact bilateral face hands and feet. Strong equal entry level account executive. Negative pronator drift. SKIN: Warm and dry PSYCH: Not anxious, is cooperative Initial Vital Signs Initial Vital Signs: Vital Signs Temperature 98.4 F 08/01/22 20:20 Pulse Rate 90 08/01/22 20:20 Respiratory Rate 20 08/01/22 20:20 Blood Pressure 143/69 H 08/01/22 20:20 Pulse Oximetry 96 08/01/22 20:20 Oxygen Delivery Method 08/01/22 20:20 Course Course Course Narrative: No new issues during course of stay Orders Ordered: ED Orders 08/01/22 23:25 CBC Auto Diff [Complete Blood Count AUTO DIFF] Stat CMP [Comprehensive Metabolic Panel] Stat Magnesium Stat Discontinued Medications Calcium Gluconate 9.3 meq/ (Sodium Chloride) 70 mls @ 140 mls/hr IV NOW ONE Stop: 08/02/22 00:30 Last Infusion: 08/02/22 01:10 Dose: 0 mls/hr Documented By: Admin: 08/02/22 00:11 Dose: 140 mls/hr Documented By: ADITI Reevaluation(s) Reevaluation #1: Patient and daughter states symptoms have resolved after calcium infusion. She is feels much better and desires discharge home. She is only taking 1 tablet of Tums every 6 hours, reviewed with her that she will likely to need to take 2 tabs every 6 hours. She is a appointment with family doctor August 15. Return precautions reviewed with patient and daughter. They are pleased with treatment plan and desired discharge home Time: 01:10 Vital Signs Vital signs: Vital Signs - 8 hr 08/01/22 20:20 08/01/22 23:32 08/02/22 00:00 Temperature 98.4 F Pulse Rate 90 75 79 Respiratory Rate 20 Blood Pressure 143/69 H Pulse Oximetry 96 95 94 Oxygen Delivery Method Room Air 08/02/22 00:01 08/02/22 00:01 08/02/22 00:30 Temperature Pulse Rate 75 Respiratory Rate Blood Pressure 145/76 H 149/78 H Pulse Oximetry 94 Oxygen Delivery Method 08/02/22 00:30 08/02/22 01:00 10/20/22 01:00 Temperature Pulse Rate 69 72 Respiratory Rate 27 H Blood Pressure 153/85 H Pulse Oximetry 95 96 Oxygen Delivery Method MDM - Neuro Symptoms/Deficit Differential Diagnosis Differential diagnosis: Likely other (Hypocalcemia/dehydration/electrolyte imbalance.) Lab Data Result diagrams: 08/01/22 23:25 08/01/22 23:25 Labs: Lab Results 08/01/22 08/01/22 Range/Units 23:25 23:25 WBC 12.0 H (4.5-11.0) X10^3/uL RBC 4.78 (4.0-5.2) X10^6/uL Hgb 13.6 (12.0-16.0) g/dL Hct 40.3 (36-46) % MCV 84.5 (80-100) fL MCH 28.4 (26-34) PG MCHC 33.7 (30-36) % RDW 13.3 (11.6-14.8) % Plt Count 305 (150-400) X10^3/uL Neut % (Auto) 87.1 H (50-75) % Lymph % (Auto) 10.8 L (25-40) % [place] % (Auto) 1.4 L (3-14) % Eos % (Auto) 0.0 L (2-4) % Baso % (Auto) 0.7 (0-2) % Neut # (Auto) 30384 H (0059-9936) /uL Lymph # (Auto) 1300 (5389-6957) /uL [place] # (Auto) 200 (0-900) /uL Eos # (Auto) 0 (0-450) /uL Baso # (Auto) 100 (0-100) /uL Sodium 137 (137-145) mmol/L Potassium 4.0 (3.4-5.1) mmol/L Chloride 96 L (98-107) mmol/L Carbon Dioxide 28 (22-32) mmol/L BUN 22 H (7-17) mg/dL Creatinine 0.91 (0.52-1.04) mg/dL Estimated GFR > 60 (>60) mL/min BUN/Creatinine Ratio 24.2 H (6-22) Glucose 266 H (80-110) mg/dL Calcium 6.2 L* (8.4-10.2) mg/dL Magnesium 1.9 (1.6-2.3) mg/dL Total Bilirubin 0.3 (0.2-1.3) mg/dL AST 21 (14-36) IU/L ALT 30 (<35) IU/L Alkaline Phosphatase 145 H (38-126) U/L Total Protein 7.6 (6.3-8.2) g/dL Albumin 4.4 (3.5-5.0) g/dL Globulin 3.2 (1.7-4.1) g/dL Albumin/Globulin Ratio 1.4 (1.0-2.8) MDM Narrative Medical decision making narrative: Appropriate for discharge home. Exam and laboratories otherwise reassuring, patient's symptoms due to low calcium and resolved with calcium replacement. No imaging indicated. Patient can follow up with primary care for repeat calcium levels after increasing home intake of calcium. Symptom free at time of discharge. Return precautions reviewed with patient and daughter, they desire discharge home. Discharge Plan Departure Patient Disposition: Home Clinical Impression: Hypocalcemia Activity Restrictions/Additional Instructions: Please take 2 tablets of your Tums/calcium every 6 hours. Return if worse if any questions or concerns. See your family doctor August as scheduled. You will need your calcium levels remeasured. Return if worse or for any questions or concerns. Prescriptions: No Action prednisone 20 mg tablet 40 mg PO DAILY 5 Days Qty: 10 0RF acyclovir [Zovirax] 400 MG tablet 400 mg PO DAILY Qty: 0 hydrochlorothiazide 25 MG tablet 25 mg PO QDAY Qty: 0 Qvar 80 MCG/PUFF aerosol 1 puff INH PRN PRN (Reason: Shortness Of Breath) Qty: 1 albuterol sulfate [Proventil HFA] 90 MCG/PUFF HFA aerosol inhaler 2 puff INH PRN PRN (Reason: Shortness Of Breath) Qty: 8.5 Atrovent HFA 12.9 GM HFA aerosol inhaler 2 puff INH QIDWART Qty: 0 amlodipine [Norvasc] 10 mg Tablet 10 mg PO DAILY Zyrtec 10 mg Capsule 10 mg PRN PRN (Reason: Allergy Symptoms) naproxen sodium [Aleve] 220 mg Capsule 220 mg PO BID PRN (Reason: Pain (Scale Score 4-6)) omeprazole 20 mg PRN PRN (Reason: Acid Reflux) lorazepam 0.5 mg Tablet 0.5 mg PO TID PRN (Reason: anxiety, right kidney cancer ) Qty: 30 0RF tramadol [Ultram] 50 mg tablet 50 mg PO Q6H PRN (Reason: pain) Qty: 14 0RF Referrals: Tiara Styles MD [Primary Care Provider] - Visit Report Forms: Patient Portal/API
[2022-08-01 23:32] VITALS: PULSE 75; O2SAT 95
[2022-08-01 23:38] LABS: Add Manual Diff / Slide Review NO; Basophils Absolute Auto 100 /uL (0-100); Basophils Percent Auto 0.7 % (0-2); Eosinophils Absolute Auto 0 /uL (0-450); Hematocrit 40.3 % (36-46); Hemoglobin 13.6 g/dL (12.0-16.0); Lymphocytes Absolute Auto 1300 /uL (1100-4500); Lymphocytes Percent Auto 10.8 % (25-40); Mean Corpuscular HGB Conc 33.7 % (30-36); Mean Corpuscular Hemoglobin 28.4 PG (26-34); Mean Corpuscular Volume 84.5 fL (80-100); Monocytes Absolute Auto 200 /uL (0-900); Monocytes Percent Auto 1.4 % (3-14); Neutrophils Absolute Auto 10400 /uL (1500-7000); Neutrophils Percent Auto 87.1 % (50-75); Platelet Count 305 X10^3/uL (150-400); Red Blood Cell Count 4.78 X10^6/uL (4.0-5.2); Red Cell Distribution Width 13.3 % (11.6-14.8)
[2022-08-01 23:47] LABS: Alanine Aminotransferase 30 IU/L (<35); Albumin 4.4 g/dL (3.5-5.0); Albumin Globulin Ratio 1.4 (1.0-2.8); Alkaline Phosphatase 145 U/L (38-126); Aspartate Aminotransferase 21 IU/L (14-36); BUN Creatinine Ratio 24.2 (6-22); Bilirubin Total 0.3 mg/dL (0.2-1.3); Blood Urea Nitrogen 22 mg/dL (7-17); Carbon Dioxide 28 mmol/L (22-32); Chloride 96 mmol/L (98-107); Estimated Glomerular Filt Rate > 60 mL/min (>60); Globulin 3.2 g/dL (1.7-4.1); Glucose 266 mg/dL (80-110); HEMOLYSIS < 15 (0-50); Magnesium 1.9 mg/dL (1.6-2.3); Sodium 137 mmol/L (137-145); Total Protein 7.6 g/dL (6.3-8.2)
[2022-08-01 23:57] LABS: Calcium 6.2 mg/dL (8.4-10.2)
[2022-08-02] VITALS: PULSE 79; O2SAT 94
[2022-08-02 00:01] VITALS: BP 145/76; PULSE 75; O2SAT 94
[2022-08-02] MEDS: CALCIUM GLUCONATE 9.3 MEQ in SODIUM CHLORIDE 0.9% 50 ML 140 MEQ IV (00:11)
[2022-08-02 00:30] VITALS: BP 149/78; PULSE 69; O2SAT 95
[2022-08-02 01:00] VITALS: BP 153/85; PULSE 72; RESP 27; O2SAT 96
== END 2022-08-02 01:18 | disposition home or self-care (01) ==
PROVIDERS: Emergency Provider Emergency Medicine; PCP Family Medicine
DX: E83.51 Hypocalcemia (principal)
CPT/HCPCS: 36415; 80053; 83735; 85025; 96365; 99284; J0610